=== PATIENT | male | born 1990 | race Caucasian/White ===

== ENCOUNTER 2019-10-03 05:05 | Emergency (ER) | payer BC, OTHER ==
[~2019-10-03] VITALS: Ht 178 cm; Wt 85.0 kg
[2019-10-03] MEDS ORDERED: ONDANSETRON 4 MG/2 ML (SDV) Z0FRAN ONE (05:20)
[2019-10-03] MEDS ORDERED: LACTATED RINGERS 1,000 ML IV ONE ×2 (05:20→06:25)
[2019-10-03] MEDS ORDERED: LACTATED RINGERS 1,000 ML IV STA (05:21)
--- NOTE | 2019-10-03 05:28 | NUR ---
URINAL PROVIDED, URINE SPECIMEN REQUESTED.
[2019-10-03] MEDS ORDERED: ONDANSETRON 4 MG/2 ML (SDV) Z0FRAN IVP ONE (05:30)
[2019-10-03 05:32] LABS: BASOPHILS % (AUTO) 0 % (0-10); EOSINOPHILS # (AUTO) 0.1 10^3/uL (0.0-0.3); EOSINOPHILS % (AUTO) 1 % (0-10); HEMATOCRIT 45 % (40-54); HEMOGLOBIN 16.1 G/DL (13.3-17.7); LYMPHOCYTES # (AUTO) 2.6 X 10^3 (1.0-4.0); LYMPHOCYTES % (AUTO) 25 % (12-44); MEAN CORPUSCULAR HEMOGLOBIN 29 PG (25-34); MEAN CORPUSCULAR HGB CONC 36 G/DL (32-36); MEAN CORPUSCULAR VOLUME 81 FL (80-99); MEAN PLATELET VOLUME 10.1 FL (7.4-10.4); MONOCYTES % (AUTO) 10 % (0-12); NEUTROPHILS # (AUTO) 6.4 X 10^3 (1.8-7.8); NEUTROPHILS % (AUTO) 63 % (42-75); PLATELET COUNT 296 10^3/uL (130-400); RED CELL DISTRIBUTION WIDTH 12.6 % (10.0-14.5)
[2019-10-03] MEDS ORDERED: fentaNYL INJECTION 100 MCG/2 ML AMP IVP STA (05:41)
[2019-10-03 05:44] LABS: ALANINE AMINOTRANSFERASE 25 U/L (0-55); ALBUMIN 4.7 GM/DL (3.2-4.5); ALKALINE PHOSPHATASE 82 U/L (40-136); BILIRUBIN,TOTAL 1.2 MG/DL (0.1-1.0); BUN/CREATININE RATIO 12; CALCIUM 9.8 MG/DL (8.5-10.1); CARBON DIOXIDE 17 MMOL/L (21-32); CHLORIDE 110 MMOL/L (98-107); CREATININE SERUM 1.01 MG/DL (0.60-1.30); GFR ESTIMATED > 60; GLUCOSE 136 MG/DL (70-105); MAGNESIUM 1.8 MG/DL (1.6-2.4); POTASSIUM 3.5 MMOL/L (3.6-5.0); SODIUM 141 MMOL/L (135-145); TOTAL PROTEIN 7.7 GM/DL (6.4-8.2)
--- NOTE | 2019-10-03 05:55 | ED Abdominal Pain ---
General Chief Complaint: Abdominal/GI Problems Stated Complaint: VOMITING,GARCIA,WEAK Nursing Triage Note: N/V/ABDOMINAL PAIN, HEADACHE, WEAKNESS SINCE 199910/02/2019, DIARRHEA X 2 DAYS. Sepsis Screen: No Definite Risk Source of Information: Patient Exam Limitations: No Limitations (IVORY HARVEY MD) History of Present Illness Date Seen by Provider: Oct 03, 2019 Time Seen by Provider: 05:35 Initial Comments Here with report of abdominal pain, nausea, vomiting and loose stools. Does admit to using marijuana daily. No reported fevers. Has had vomiting 5 times over the last several hours. Complaints of abdominal cramping and feels dizzy. Timing/Duration: 1-2 Days Severity/Quality: Moderate, Aching, Cramping Location: Generalized Abdomen Radiation: No Radiation Activities at Onset: None Modifying Factors: Worsens With Eating; Improves With Vomiting Associated Symptoms: No Chest Pain, No Diaphoresis; Nausea/Vomiting, Weakness (IVORY HARVEY MD) Allergies and Home Medications Allergies Coded Allergies: No Known Drug Allergies (Unverified , 10/03/19) Home Medications Meclizine HCl 25 Mg Tablet, 25 MG PO Q8H PRN for DIZZINESS Prescribed by: RIMA MASON on 10/03/19 1346 Ondansetron 4 Mg Tab.rapdis, 4 MG SL Q4H PRN for NAUSEA/VOMITING Prescribed by: RIMA MASON on 10/03/19 1346 Patient Home Medication List Home Medication List Reviewed: Yes (IVORY HARVEY MD) Review of Systems Review of Systems Constitutional: chills; No fever EENTM: No Symptoms Reported Respiratory: Denies Cough, Denies Shortness of Air Cardiovascular: Denies Edema Gastrointestinal: Diarrhea, Nausea, Vomiting Genitourinary: No Symptoms Reported Musculoskeletal: no symptoms reported Skin: no symptoms reported Psychiatric/Neurological: See HPI (IVORY HARVEY MD) All Other Systems Reviewed Negative Unless Noted: Yes (IVORY HARVEY MD) Past Ibtvzde-Grgiku-Haydlk Hx Past Med/Social Hx: Reviewed Nursing Past Med/Soc Hx (IVORY HARVEY MD) Patient Social History Alcohol Use: Occasionally Uses Alcohol Beverage of Choice: Beer Recreational Drug Use: Yes Drug of Choice: CANNIBUS Smoking Status: Current Everyday Smoker Type Used: Cigarettes 2nd Hand Smoke Exposure: Yes Recent Foreign Travel: No Contact w/Someone Who Travel: No Recent Infectious Disease Expo: No Recent Hopitalizations: No Physical Abuse: No Sexual Abuse: No Mistreated: No Fear: No (IVORY HARVEY MD) Immunizations Up To Date Tetanus Booster (TDap): Unknown (IVORY HARVEY MD) Seasonal Allergies Seasonal Allergies: No (IVORY HARVEY MD) Past Medical History Surgeries: No Respiratory: No Cardiac: No Neurological: No Genitourinary: No Gastrointestinal: No Musculoskeletal: No Endocrine: No HEENT: No Cancer: No Psychosocial: No Integumentary: No Blood Disorders: No (IVORY HARVEY MD) Family Medical History Reviewed Nursing Family Hx (IVORY HARVEY MD) Physical Exam Vital Signs Vital Signs - First Documented 10/03/19 05:12 Temp 35.3 Pulse 92 Resp 20 B/P (MAP) 135/78 (97) Pulse Ox 98 O2 Delivery Room Air (RIMA WILEY MD) Vital Signs Capillary Refill : Less Than 3 Seconds (IVORY HARVEY MD) Height/Weight/BMI Height: '" Weight: lbs. oz. kg; 26.00 BMI Method: General Appearance: WD/WN, no apparent distress HEENT: PERRL/EOMI, pharynx normal Neck: full range of motion, supple Respiratory: lungs clear, normal breath sounds Cardiovascular: regular rate, rhythm, no murmur Peripheral Pulses: 2+ Dorsalis Pedis (R), 2+ Left Dors-Pedis (L), 2+ Radial Pulses (R), 2+ Radial Pulses (L) Gastrointestinal: normal bowel sounds, soft; No guarding, No rebound; tenderness (diffuse mild) Extremities: non-tender, normal inspection Back: normal inspection, no CVA tenderness, no vertebral tenderness Neurologic/Psychiatric: alert, oriented x 3 Skin: normal color, warm/dry (IVORY HARVEY MD) Progress/Results/Core Measures Results/Orders Lab Results Laboratory Tests Test 10/03/19 05:18 10/03/19 08:55 Range/Units White Blood Count 10.0 4.3-11.0 10^3/uL Red Blood Count 5.57 4.35-5.85 10^6/uL Hemoglobin 16.1 13.3-17.7 G/DL Hematocrit 45 40-54 % Mean Corpuscular Volume 81 80-99 FL Mean Corpuscular Hemoglobin 29 25-34 PG Mean Corpuscular Hemoglobin Concent 36 32-36 G/DL Red Cell Distribution Width 12.6 10.0-14.5 % Platelet Count 296 130-400 10^3/uL Mean Platelet Volume 10.1 7.4-10.4 FL Neutrophils (%) (Auto) 63 42-75 % Lymphocytes (%) (Auto) 25 12-44 % Monocytes (%) (Auto) 10 0-12 % Eosinophils (%) (Auto) 1 0-10 % Basophils (%) (Auto) 0 0-10 % Neutrophils # (Auto) 6.4 1.8-7.8 X 10^3 Lymphocytes # (Auto) 2.6 1.0-4.0 X 10^3 Monocytes # (Auto) 1.0 0.0-1.0 X 10^3 Eosinophils # (Auto) 0.1 0.0-0.3 10^3/uL Basophils # (Auto) 0.0 0.0-0.1 10^3/uL Sodium Level 141 135-145 MMOL/L Potassium Level 3.5 L 3.6-5.0 MMOL/L Chloride Level 110 H 98-107 MMOL/L Carbon Dioxide Level 17 L 21-32 MMOL/L Anion Gap 14 5-14 MMOL/L Blood Urea Nitrogen 12 7-18 MG/DL Creatinine 1.01 0.60-1.30 MG/DL Estimat Glomerular Filtration Rate > 60 BUN/Creatinine Ratio 12 Glucose Level 136 H 70-105 MG/DL Calcium Level 9.8 8.5-10.1 MG/DL Corrected Calcium 8.5-10.1 MG/DL Magnesium Level 1.8 1.6-2.4 MG/DL Total Bilirubin 1.2 H 0.1-1.0 MG/DL Aspartate Amino Transf (AST/SGOT) 20 5-34 U/L Alanine Aminotransferase (ALT/SGPT) 25 0-55 U/L Alkaline Phosphatase 82 40-136 U/L C-Reactive Protein High Sensitivity 0.17 0.00-0.50 MG/DL Total Protein 7.7 6.4-8.2 GM/DL Albumin 4.7 H 3.2-4.5 GM/DL Urine Color YELLOW Urine Clarity CLEAR Urine pH 8.0 5-9 Urine Specific [place] 1.010 L 1.016-1.022 Urine Protein NEGATIVE NEGATIVE Urine Glucose (UA) NEGATIVE NEGATIVE Urine Ketones TRACE H NEGATIVE Urine Nitrite NEGATIVE NEGATIVE Urine Bilirubin NEGATIVE NEGATIVE Urine Urobilinogen 0.2 < = 1.0 MG/DL Urine Leukocyte Esterase NEGATIVE NEGATIVE Urine RBC (Auto) NEGATIVE NEGATIVE Urine RBC NONE /HPF Urine WBC NONE /HPF Urine Crystals NONE /LPF Urine Bacteria NEGATIVE /HPF Urine Casts NONE /LPF Urine Mucus NEGATIVE /LPF Urine Culture Indicated NO Urine Opiates Screen NEGATIVE NEGATIVE Urine Oxycodone Screen NEGATIVE NEGATIVE Urine Methadone Screen NEGATIVE NEGATIVE Urine Propoxyphene Screen NEGATIVE NEGATIVE Urine Barbiturates Screen NEGATIVE NEGATIVE Ur Tricyclic Antidepressants Screen NEGATIVE NEGATIVE Urine Phencyclidine Screen NEGATIVE NEGATIVE Urine Amphetamines Screen NEGATIVE NEGATIVE Urine Methamphetamines Screen NEGATIVE NEGATIVE Urine Benzodiazepines Screen NEGATIVE NEGATIVE Urine Cocaine Screen NEGATIVE NEGATIVE Urine Cannabinoids Screen POSITIVE H NEGATIVE (RIMA WILEY MD) My Orders Orders - RIMA WILEY MD Promethazine Injection (Phenergan Injec (10/03/19 07:30) Meclizine Tablet (Antivert Tablet) (10/03/19 07:30) Ct Angio Head/Neck (10/03/19 08:55) Ekg Tracing (10/03/19 09:05) Iohexol Injection (Omnipaque 350 Mg/Ml 1 (10/03/19 09:15) Received Contrast (Hold Metformin- Contr (10/03/19 09:15) Ns (Ivpb) (Sodium Chloride 0.9% Ivpb Bag (10/03/19 09:15) (RIMA WILEY MD) Medications Given in ED Current Medications Medications Dose Ordered Sig/Veronica Route Start Time Stop Time Status Last Admin Dose Admin Haloperidol Lactate 5 mg ONCE ONCE IV 10/03/19 06:00 10/03/19 06:01 DC 10/03/19 05:55 5 MG Iohexol 75 ml ONCE ONCE IV 10/03/19 09:15 10/03/19 09:16 DC 10/03/19 09:23 75 ML Lactated Ringer's 1,000 ml @ 0 mls/hr Q0M ONCE IV 10/03/19 06:25 10/03/19 06:26 DC 10/03/19 06:30 0 MLS/HR Meclizine HCl 25 mg ONCE ONCE PO 10/03/19 07:30 10/03/19 07:31 DC 10/03/19 07:22 25 MG Promethazine HCl 25 mg ONCE ONCE IVP 10/03/19 07:30 10/03/19 07:31 DC 10/03/19 07:21 25 MG Sodium Chloride 100 ml ONCE ONCE IV 10/03/19 09:15 10/03/19 09:16 DC 10/03/19 09:23 80 ML (RIMA WILEY MD) Vital Signs/I&O 10/03/19 10/03/19 05:12 13:58 Temp 35.3 35.3 Pulse 92 86 Resp 20 15 B/P (MAP) 135/78 (97) 122/81 (97) Pulse Ox 98 98 O2 Delivery Room Air Room Air (RIMA WILEY MD) Blood Pressure Mean: 97 Progress Progress Note : Progress Note Seen and evaluated. IV, labs, UA, UDS, Zofran 8 mg IV and fentanyl 50 g IV. Patient with continued pain. 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 Monitor patient. (IVORY HARVEY MD) Progress Note #1: Time: 07:18 Progress Note Care of this patient was assumed from Dr. Harvey at shift change. He has not produced urine yet and is receiving a second bag of LR. Patient was reexamined and he complains of persistent vertiginous dizziness especially when turning his head to the left. It is fatigable with rest and with closing his eyes. He complains of persistent nausea. We will place 25 mg of Phenergan in the remainder of his IV solution and give meclizine. After he receives those medications we will attempt to the Lillie maneuver. We will also try to obtain a urine specimen. Progress Note #2: Time: 08:09 Progress Note Patient's nausea is better after the Phenergan. He has finished his fluids. He still complained of significant vertigo. This seem to be worse with left sided head movement. Lillie maneuver was performed starting on the left. Patient did have nystagmus with position changes. Lillie maneuver did not seem to significantly improve his dizziness. Neuro exam was performed and showed no focal deficits. He had no detectable weakness. Finger to nose and heel to echols were normal. Nystatin miss was noted during the Lillie maneuver and with extraocular movements in both directions. We will allow his meclizine to set in for a little bit and then reexamine him and attempt walking. We will also try to get him up to provide a urine at that time. Progress Note #3: Time: 08:52 Progress Note Ample time has passed for meclizine and Phenergan to treat the vertigo. However, patient states vertigo is still just as intense. I did have the patient walk. He is able to stand and walk on his own power. However, he has significant disequilibrium and required support from me and objects in the room to stay upright. Patient reports his symptoms started around 20:00 last night. Because of the significant disequilibrium refractory to treatment, I'm obtaining a CT angiogram of the head and neck to be sure there are no vascular structural problems contributing to his symptoms. Although the vertigo is fatigable, and never really disappears, even at rest. Progress Note #4: Time: 09:02 Progress Note HINTS exam was performed. Patient had corrective nystagmus with any head movement but also was noted to have nystagmus at rest with forward gaze. These findings are mixed results. Progress Note #5: Time: 10:58 Progress Note Patient is still experiencing dizziness and nystagmus. Case was discussed with Dr. Waldron, stroke neurologist at [facility], at 10:10. She agrees with workup that has been performed so far. She also agrees patient should be admitted for observation, especially since he cannot ambulate safely independently. She does not believe any other emergent workup or interventions need to be performed at this time. MRI is available. Progress Note #6: Time: 12:10 Progress Note I spoke with Dr. Barragan, hospitalist on-call. He requested I investigate transferring the patient to facility with immediate MRI services and neurology consultation available. I discussed the case with the neurologist and hospitalist transitions manager at [facility], and they accept transfer. When the plan was communicated to patient, he stated he was starting to feel better and so hesitated to commit to transfer. He would like to wait an hour and see how he's doing at that time before he commits. [facility] was updated. Progress Note #7: Progress Note Patient was reassessed more than an hour later. His disequilibrium was much improved and he was able to walk a straight line without assistance and was deemed safe to ambulate. His nystagmus seem to improve his well. He elected to decline transfer to [facility]. I did discuss risks of delaying further evaluation including the possibility of missing a brain lesion and not having the opportunity to undergo evaluation by a neurologist. He expressed understanding. He will pursue follow-up in the outpatient setting. See discharge instructions. [facility] transfer line was updated with patient's decision. (RIMA WILEY MD) Initial ECG Impression Date: Oct 03, 2019 Initial ECG Impression Time: 08:59 Initial ECG Rate: 68 Initial ECG Rhythm: Normal Sinus Initial ECG Intervals: Normal Initial ECG Impression: Normal Comment Normal sinus rhythm with no ST elevation or depression. No abnormal intervals or axis deviation. (RIMA WIELY MD) Diagnostic Imaging Diagonstic Imaging: CT Comments CT angiogram head and neck viewed by me and report reviewed. See report below: NAME: LUIS BREEN [facility] REC#: [id number] PT STATUS: REG ER : 1990 PHYSICIAN: RIMA WILEY MD ADMIT DATE: 10/03/19/ER Signed Date of Exam:10/03/19 CT ANGIO HEAD/NECK PROCEDURE: CT angiography of the head and CT angiography of the neck with and without contrast. TECHNIQUE: Contiguous noncontrast images were obtained from the skull base through the vertex. After intravenous contrast administration, helical CT angiography of the neck was performed. Source data was reformatted into 3D MIP projections. Delayed post contrast acquisition was also obtained. Auto Exposure Controls were utilized during the CT exam to meet ALARA standards for radiation dose reduction. INDICATION: Nausea, vomiting, abdominal pain, headache and weakness. FINDINGS: The ventricles and sulci are within normal limits. No hydrocephalus. No midline shift. No mass, hemorrhage or extra-axial fluid collection. There are no abnormal areas of contrast enhancement. Sinuses and mastoid air cells are clear. There are no proximal intracranial branch occlusions, vascular malformations or aneurysms. The nasopharyngeal, oropharyngeal and hypopharyngeal tissues are symmetrical without mass effect. The parotid, submandibular and thyroid glands normal in appearance. Lung apices clear. Normal branching pattern of the thoracic aorta. The common carotid arteries, internal carotid arteries and vertebral arteries are widely patent. There is no dissection, stenosis or occlusion. No pathologically enlarged adenopathy or mass in the neck. Cervical spine is unremarkable. Prevertebral soft tissues are within normal limits. IMPRESSION: Unremarkable CTA head and neck. No acute intracranial abnormality. No acute abnormality in the neck. Dictated by: Dictated on workstation # [id number] Dict: 10/03/19 0943 Trans: 10/03/19 1142 CVB [id number] Interpreted by: REYES MCGRATH MD Electronically signed by: REYES MCGRATH MD 10/03/19 1142 (RIMA WILEY MD) Departure Impression Primary Impression: Disequilibrium Additional Impressions: intractable vertigo Nausea and vomiting Qualified Codes: R11.2 - Nausea with vomiting, unspecified Disposition: XFER SHT-TRM HOSP Condition: Improved Transfer Transfer Reason: Exceeds level of care Time Spoke to Accepting Phy: 12:05 Transfer Progress Notes I spoke with her neurologist transitions manager, Dr. Monsalve. He requested admission to the hospitalist service under Dr. Berrios. I spoke with Dr. Berrios at 12:05 and he accepted transfer. Transfer Facility: [facility] Method of Transfer: EMS (RIMA WILEY MD) Departure-Patient Inst. Referrals: NO,LOCAL PHYSICIAN (PCP/Family) Primary Care Physician Patient Instructions: VERTIGO Add. Discharge Instructions: Drink plenty of clear liquids to stay well-hydrated. Use Zofran (ondansetron) as prescribed for nausea and vomiting. Use meclizine as prescribed for dizziness. Please note meclizine may cause drowsiness. Do not drive or operate machinery while using it. Do not return to work until your symptoms are completely resolved. Follow-up with a primary care provider soon as possible. If symptoms become worse again through the weekend, please present to a tertiary care facility with MRI and neurology services such as [facility] or [facility] in [place]. [facility] [address] [facility] [address] [place], [place] All discharge instructions reviewed with patient and/or family. Voiced understanding. Scripts Ondansetron (Ondansetron Odt) 4 Mg Tab.rapdis 4 MG SL Q4H PRN for NAUSEA/VOMITING, #10 TAB Prov: RIMA WILEY MD 10/03/19 Meclizine HCl (Meclizine HCl) 25 Mg Tablet 25 MG PO Q8H PRN for DIZZINESS, #10 TAB Prov: RIMA WILEY MD 10/03/19 Work/School Note: Work Release Form Date Seen in the Emergency Department: Oct 03, 2019 Return to Work: Oct 06, 2019 Other Restrictions Listed Below: Return to work only if symptoms of dizziness and nausea are completely gone IVORY HARVEY MD Oct 03, 2019 05:55 RIMA WILEY MD Oct 03, 2019 07:25
[2019-10-03] MEDS ORDERED: HALOPERIDOL 5 MG/ML (HALDOL) VIAL IV ONE (06:00)
[2019-10-03] MEDS ORDERED: PROMETHAZINE INJ 25 MG/ML (PHENERGAN) AMP ONE (07:16)
[2019-10-03] MEDS ORDERED: MECLIZINE 25 MG (ANTIVERT) TAB PO ONE (07:30)
[2019-10-03] MEDS ORDERED: PROMETHAZINE INJ 25 MG/ML (PHENERGAN) AMP IVP ONE (07:30)
[2019-10-03 09:02] LABS: BILIRUBIN,URINE NEGATIVE (NEGATIVE); CLARITY,URINE CLEAR; COLOR,URINE YELLOW; GLUCOSE, URINE (UA) NEGATIVE (NEGATIVE); KETONES,URINE TRACE (NEGATIVE); LEUKOCYTE ESTERASE ,URINE NEGATIVE (NEGATIVE); NITRITE,URINE NEGATIVE (NEGATIVE); PROTEIN,URINE NEGATIVE (NEGATIVE)
[2019-10-03] MEDS ORDERED: NS 100 ML (IVPB) BAG IV ONE (09:15)
[2019-10-03] MEDS ORDERED: HOLD METFORMIN - RECEIVED CONTRAST 20 ML VIAL IV SCH (09:15)
[2019-10-03] MEDS ORDERED: IOHEXOL 350 MG/ML 100 ML (OMNIPAQUE 350) VIAL IV ONE (09:15)
[2019-10-03 09:16] LABS: AMPHETAMINE SCREEN, URINE NEGATIVE (NEGATIVE); BARBITURATE SCREEN URINE NEGATIVE (NEGATIVE); BENZODIAZEPINES SCREEN URINE NEGATIVE (NEGATIVE); CANNABINOID SCREEN, URINE POSITIVE (NEGATIVE); COCAINE SCREEN URINE NEGATIVE (NEGATIVE); METHADONE STAT NEGATIVE (NEGATIVE); METHAMPHETAMINE SCREEN URINE S NEGATIVE (NEGATIVE); OPIATE SCREEN URINE NEGATIVE (NEGATIVE); OXYCODONE STAT NEGATIVE (NEGATIVE); PROPOXYPHENE STAT NEGATIVE (NEGATIVE); TRICYCLIC ANTIDEPRESSANTS SCRE NEGATIVE (NEGATIVE)
[2019-10-03 09:22] LABS: BACTERIA,URINE NEGATIVE /HPF
--- NOTE | 2019-10-03 09:48 | Diagnostic Imaging Report ---
PROCEDURE: CT angiography of the head and CT angiography of the neck with and without contrast. TECHNIQUE: Contiguous noncontrast images were obtained from the skull base through the vertex. After intravenous contrast administration, helical CT angiography of the neck was performed. Source data was reformatted into 3D MIP projections. Delayed post contrast acquisition was also obtained. Auto Exposure Controls were utilized during the CT exam to meet ALARA standards for radiation dose reduction. INDICATION: Nausea, vomiting, abdominal pain, headache and weakness. FINDINGS: The ventricles and sulci are within normal limits. No hydrocephalus. No midline shift. No mass, hemorrhage or extra-axial fluid collection. There are no abnormal areas of contrast enhancement. Sinuses and mastoid air cells are clear. There are no proximal intracranial branch occlusions, vascular malformations or aneurysms. The nasopharyngeal, oropharyngeal and hypopharyngeal tissues are symmetrical without mass effect. The parotid, submandibular and thyroid glands normal in appearance. Lung apices clear. Normal branching pattern of the thoracic aorta. The common carotid arteries, internal carotid arteries and vertebral arteries are widely patent. There is no dissection, stenosis or occlusion. No pathologically enlarged adenopathy or mass in the neck. Cervical spine is unremarkable. Prevertebral soft tissues are within normal limits. IMPRESSION: Unremarkable CTA head and neck. No acute intracranial abnormality. No acute abnormality in the neck. Dictated by: Dictated on workstation # [id number]
[2019-10-03] MEDS ORDERED: ONDA4TAB11 SL (13:46)
[2019-10-03] MEDS ORDERED: MECL-149 PO (13:46)
[2019-10-03 13:58] VITALS: BP 122/81
== END 2019-10-03 13:58 | disposition short-term general hospital (02) ==
LOC: ER 05:09
DX: E87.8 Other disorders of electrolyte and fluid balance, not elsewhere classified (principal); R42 Dizziness and giddiness; F17.210 Nicotine dependence, cigarettes, uncomplicated
CPT/HCPCS: 36415; 70496; 70498; 80053; 80306; 81000; 83735; 85025; 86141; 93005